=== PATIENT | female | born 1970 | race Caucasian/White ===

== ENCOUNTER 2019-03-02 23:42 | Emergency (ER) | payer MEDICAID ==
[2019-03-02] MEDS ORDERED: 0.9 % SODIUM CHLORIDE 1000ML 1,000 ML IV SCH (23:45)
[2019-03-02] MEDS ORDERED: KETOROLAC 30 MG/ML VIAL IVP ONE (23:52)
[2019-03-02] MEDS ORDERED: ONDANSETRON HCL IV 4 MG/2 ML VIAL IVP ONE (23:52)
--- NOTE | 2019-03-02 23:58 | Emergency Department Record ---
History of Present Illness - General Chief complaint: Flank Pain Stated complaint: FLANK PAIN/UTI Time Seen by Provider: 03/02/19 23:43 Source: Patient Mode of Arrival: Ambulatory Limitations: No limitations - History of Present Illness Initial comments: 48 yo female presents to ED for evaluation of sudden-onset of left flank pain symptoms that began approximately 60-90 minutes ago. Patient reports nausea/vomiting symptoms, denies fevers, chills, or recent illness. Patient denies history of kidney stones previously, [facility] MD Complaint: Other (Hematuria) Onset/Timin -: Minutes(s) Radiation: L flank Severity: Moderate Quality: Aching Consistency: Constant Improves with: None Worsens with: None Patient : No Associated Symptoms: Denies other symptoms - Related Data Home Medications Medication Instructions Recorded Confirmed Last Taken Linaclotide [Linzess] 145 mcg PO DAILY 03/02/19 03/02/19 Unknown Allergies Allergy/AdvReac Type Severity Reaction Status Date / Time aspirin AdvReac HYPERSENSIT Verified 03/02/19 23:56 IVITY Penicillins AdvReac RASH Verified 03/02/19 23:56 Review of Systems Constitutional: Denies: Chills, Fever, Malaise, Night sweats Eyes: Denies: Eye discharge, Eye pain ENT: Denies: Congestion, Ear pain, Epistaxis Respiratory: Denies: Cough, Dyspnea Cardiovascular: Denies: Chest pain Endocrine: Denies: Fatigue, Heat or cold intolerance Gastrointestinal: Reports: Abdominal pain, Nausea, Vomiting. Denies: Const ipation Genitourinary: Reports: Dysuria. Denies: Hematuria, Incontinence, Retention Musculoskeletal: Reports: Back pain. Denies: Arthralgia, Gout, Joint swelling Skin: Denies: Bruising, Change in color Neurological: Denies: Abnormal gait, Confusion Psychiatric: Denies: Anxiety Hematological/Lymphatic: Denies: Anemia, Blood Clots Past Medical History - SOCIAL HISTORY Smoking Status: Never smoker Alcohol Use: Rare Drug Use: None - RESPIRATORY Hx Respiratory Disorders: No - CARDIOVASCULAR Hx Cardio Disorders: No - NEURO Hx Neuro Disorders: No - GI Hx GI Disorders: No - Hx Genitourinary Disorders: No - ENDOCRINE Hx Endocrine Disorders: No - MUSCULOSKELETAL Hx Musculoskeletal Disorders: No - PSYCH Hx Psych Problems: No - HEMATOLOGY/ONCOLOGY Hx Hematology/Oncology Disorders: No Family Medical History Any Significant Family History?: No Family Hx Comment (NOT TO BE USED IN PLACE OF ITEMS BELOW): denies Physical Exam - General General Appearance: Alert, Oriented x3, Cooperative, Moderate distress Limitations: No limitations - Head Head exam: Atraumatic, Normocephalic, Normal inspection Head exam detail: negative: Abrasion, Contusion, Lovett's sign, General tenderness, Hematoma, Laceration - Eye Eye exam: Normal appearance. negative: Conjunctival injection, Periorbital swelling, Periorbital tenderness, Scleral icterus - ENT Ear exam: negative: Auricular hematoma, Auricular trauma Nasal Exam: negative: Active bleeding, Discharge, Dried blood, Foreign body Mouth exam: negative: Drooling, Laceration, Muffled voice, Tongue elevation - Neck Neck exam: Normal inspection. negative: Meningismus, Tenderness - Respiratory Respiratory exam: Normal lung sounds bilaterally. negative: Rales, Respiratory distress, Rhonchi, Stridor - Cardiovascular Cardiovascular Exam: Regular rate, Normal rhythm, Normal heart sounds - GI/Abdominal GI/Abdominal exam: Soft, Tenderness (Mild-Moderate TTP LLQ). negative: Rebound, Rigid - Rectal Rectal exam: Deferred - exam: Deferred - Extremities Extremities exam: Normal inspection. negative: Pedal edema, Tenderness - Back Back exam: Reports: CVA tenderness (L). Denies: CVA tenderness (R) - Neurological Neurological exam: Alert, Normal gait, Oriented X3 - Psychiatric Psychiatric exam: Normal affect, Normal mood - Skin Skin exam: Normal color. negative: Abrasion Type of lesion: negative: abrasion Course Vital Signs 03/02/19 23:49 Temperature 97.4 F L Pulse Rate [ 16 L Left] Respiratory 16 Rate Blood Pressure 162/93 [Left] Pulse Ox 100 - Reevaluation(s) Reevaluation #1: 03/03/19 00:48 Laboratory studies were reviewed and are grossly unremarkable except for the following: UA: WBCs: 0-2 RBCs: 0-2 Epithelial cells: 7-10 Bacteria: 3+ Patient is back from CT imaging, given Dilaudid for continued pain symptoms. Awaiting CT imaging results. Reevaluation #2: 03/03/19 00:57 CT Abdomen and Pelvis: 1.3 x 0.8 cm calcification left urinary bladder Moderate associated hydronephrosis Patient was updated on all results thus far, Rocephin ordered, [facility]-call contacted per patient preference. Reevaluation #3: 03/03/19 01:[address] Wolf (Urology) and Dr. Mccauley (ED), will accept patient via transfer for further evaluation. Medical Decision Making - Lab Data Result diagrams: 03/03/19 00:01 03/03/19 00:01 Disposition Disposition: Transfer Clinical Impression: Bladder calculus Disposition: Acute Care Hospital Transfer Transfer To: [facility] Reason For Transfer: Urological consultation for infected bladder calculus Accepting Physician: Parisa Wolf Time Discussed w/Accepting Physician: 01:05 Condition: (2) Stable Forms: Patient Portal Access Time of Disposition: 01:05 Quality - Quality Measures Quality Measures: N/A - Blood Pressure Screening Does Patient Have Any of the Following: No Blood Pressure Classification: Hypertensive Reading Systolic Measurement: 162 Diastolic Measurement: 93 Screening for High Blood Pressure: < First Hypertensive BP, F/U Documented > [[id number]] First Hypertensive Follow-up Interventions: Referral to alternative/primary care provider.
[2019-03-03 00:06] LABS: ABSOLUTE NEUTROPHIL COUNT 6.17; BASO % 0.2 % (0-6); EOS % 1.8 % (0-6); GRAN % 51.1 % (47-80); HEMATOCRIT 39.4 % (35.0-47.0); HEMOGLOBIN 13.2 gm/dl (11.6-16.0); LYMPH % 38.9 % (16-45); MEAN CELL VOLUME 88.3 fl (81-97); MEAN CORPUSCULAR HEMOGLOBIN 29.6 pg (27-33); MEAN CORPUSCULAR HGB CONC 33.5 g/dl (32-36); MEAN PLATELET VOLUME 9.2 fl (7.4-10.4); PLATELET COUNT 244 K/uL (130-400); RED BLOOD COUNT 4.46 M/uL (3.80-5.40); WHITE BLOOD COUNT W/O DIFF 12.1 K/uL (4.2-12.2)
[2019-03-03 00:14] LABS: BLOOD UREA NITROGEN 18 mg/dL (6-20)
[2019-03-03 00:15] LABS: EST GLOMERULAR FILTRATION RATE > 60 mL/min; TOTAL PROTEIN 7.1 g/dL (6.6-8.7)
[2019-03-03 00:17] LABS: GLUCOSE,RANDOM 124 mg/dL (74-109)
[2019-03-03 00:20] LABS: ALB/GLOB RATIO 1.7 (1.1-1.8); ALBUMIN 4.5 g/dL (4.0-5.0); ALKALINE PHOSPHATASE 54 U/L (35-104); ALT/SGPT 15 U/L (<33); AST/SGOT 16 U/L (10.0-35.0)
[2019-03-03] MEDS ORDERED: HYDROMORPHONE HCL 2 MG/ML VIAL IVP ONE (00:28)
[2019-03-03 00:34] LABS: URINE APPEARANCE CLEAR; URINE BILIRUBIN NEGATIVE (NEGATIVE); URINE BLOOD TRACE-I (NEGATIVE); URINE COLOR YELLOW; URINE GLUCOSE (UA) NEGATIVE (NEGATIVE); URINE KETONE NEGATIVE (NEGATIVE); URINE LEUKOCYTE ESTERASE NEGATIVE (NEGATIVE); URINE NITRITE NEGATIVE (NEGATIVE); URINE PROTEIN TRACE (NEGATIVE); URINE UROBILINOGEN 0.2 E.U./dL (0.20 - 1.00)
[2019-03-03 00:41] LABS: URINE BACTERIA 3+; URINE RBC 0 - 2 (NONE SEEN); URINE WBC 0 - 2 (0-2/hpf)
[2019-03-03] MEDS ORDERED: CEFTRIAXONE 1GM/50ML BAG 1 GM/50 ML BAG IVPB ONE (01:07)
--- NOTE | 2019-03-05 05:59 | CT SCAN REPORT ---
DATE: 03/03/2019. EXAM: CT OF THE ABDOMEN AND PELVIS WITHOUT CONTRAST. HISTORY: NAUSEA AND VOMITING. TECHNIQUE: Sequential axial images were obtained from the diaphragms through the ischiorectal fossa without intravenous or oral administration of contrast material. FINDINGS: The visualized lung bases appear normal. The non-opacified liver, gallbladder, pancreas, and spleen appear normal. The adrenal glands appear normal. There is a large obstructing calculus in the left ureterovesical junction measuring 12 mm. This produces moderate to severe left hydronephrosis/hydroureter. The small bowel appears normal. There is an appendicolith within the appendix. The appendix is normal in size. The colon appears normal. The osseus structures are normal. IMPRESSION: A 12-MM OBSTRUCTING CALCULUS AT THE LEFT URETEROVESICAL JUNCTION. THIS PRODUCES MODERATE TO SEVERE LEFT HYDRONEPHROSIS/HYDROURETER. Job Number: [id number] MTDD
== END 2019-03-03 01:36 | disposition short-term general hospital (02) ==
LOC: ER 23:42
DX: N21.0 Calculus in bladder (principal); R31.0 Gross hematuria; R11.0 Nausea
CPT/HCPCS: 74176; 80053; 81001; 85025; 96361; 96374; 96375; 99285; J1885; J2405; J7030